=== PATIENT | male | born 1975 | race African-American/Black ===

== ENCOUNTER 2019-03-05 19:34 | Emergency (ER) | payer SELFPAY ==
[~2019-03-05] VITALS: Ht 177.8 cm; Wt 73.5 kg
[2019-03-05] MEDS ORDERED: IV NORMAL SALINE 1000ML BAG 1,000 ML IV ONE (20:45)
[2019-03-05] MEDS ORDERED: PROPOFOL 10 MG/ML (20ML) VIAL. IV ONE (20:45)
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
[2019-03-05] MEDS ORDERED: ONDANSETRON PF 4 MG/2 ML VIAL. ONE (22:54)
[2019-03-05] MEDS ORDERED: MORPHINE SULFATE 4 MG/ML VIAL. ONE (22:55)
[2019-03-05 23:03] VITALS: BP 164/74
[2019-03-06] MEDS ORDERED: ONDANSETRON PF 4 MG/2 ML VIAL. IV ONE (00:15)
[2019-03-06] MEDS ORDERED: ONDANSETRON PF 4 MG/2 ML VIAL. IM ONE (00:15)
[2019-03-06] MEDS ORDERED: MORPHINE SULFATE 4 MG/ML VIAL. IV ONE (00:15)
[2019-03-06 00:17] VITALS: BP 169/106
--- NOTE | 2019-03-06 01:31 | RAD ---
Indication:POST REDUCTION TECHNIQUE: 2 views of the right shoulder COMPARISON: Study from the same day earlier FINDINGS/ impression: Interval reduction of previous is seen shoulder dislocation. No acute fractures. Electronically signed by: Smith Duncan DO (03/06/2019 1:29 AM) [id number]
== END 2019-03-06 01:10 | disposition home or self-care (01) ==
LOC: ER 19:34
DX: S43.014A Anterior dislocation of right humerus, initial encounter (principal); F17.210 Nicotine dependence, cigarettes, uncomplicated; Y04.0XXA Assault by unarmed brawl or fight, initial encounter; Y93.89 Activity, other specified; Y92.89 Other specified places as the place of occurrence of the external cause; Y99.8 Other external cause status
CPT/HCPCS: 23650; 73030; 96372; 96374; 96375; 99285; J2270; J2405; J2704; J7030; 99152; 99153